=== PATIENT | female | born 1965 | race Caucasian/White ===

== ENCOUNTER → 2025-07-06 | Outpatient (CLI) | payer BC | LOC: M CLY 11:50 | PROVIDERS: ATTEND Physician Assistant Medical | DX: M79.642 Pain in left hand (principal); R93.6 Abnormal findings on diagnostic imaging of limbs ==

== ENCOUNTER → 2025-07-17 | Outpatient (CLI) | payer BC | LOC: M SOG 07:48 | PROVIDERS: ATTEND Physician Assistant | DX: S62.353A Nondisplaced fracture of shaft of third metacarpal bone, left hand, initial encounter for closed fracture (principal); W18.30XA Fall on same level, unspecified, initial encounter; Y92.009 Unspecified place in unspecified non-institutional (private) residence as the place of occurrence of the external cause ==

== ENCOUNTER → 2025-08-14 | Outpatient (CLI) | payer BC | LOC: M SOG 07:36 | PROVIDERS: ATTEND Physician Assistant | DX: S62.353A Nondisplaced fracture of shaft of third metacarpal bone, left hand, initial encounter for closed fracture (principal); W18.30XA Fall on same level, unspecified, initial encounter; Y92.009 Unspecified place in unspecified non-institutional (private) residence as the place of occurrence of the external cause ==